=== PATIENT | female | born 1985 | race Caucasian/White ===

== ENCOUNTER 2020-10-13 10:17 | Day surgery (SDC) | payer OTHER ==
[2012-01-26 10:34] VITALS: BP 111/65
[2020-10-13] MEDS ORDERED: LIDOCAINE HCL 2% 100 MG/5 ML IJ ONE (10:18)
--- NOTE | 2020-10-13 16:07 | XRAY ---
10 seconds of fluoroscopy was used in surgery for a bilateral L4-L5, L5-S1 MBB.
[2020-10-13] MEDS ORDERED: Lactated Ringers 1,000 ML IV ONE (17:31)
== END 2020-10-13 13:58 | disposition home or self-care (01) ==
LOC: SDC-PAIN 10:17
PROVIDERS: ATTEND Psychiatry & Neurology Pain Medicine
DX: M47.816 Spondylosis without myelopathy or radiculopathy, lumbar region (principal); I10 Essential (primary) hypertension; Z79.899 Other long term (current) drug therapy
CPT/HCPCS: 64493; 64494; 72020; 77002; 84703

== ENCOUNTER 2020-12-15 11:44 | Day surgery (SDC) | payer OTHER ==
[2012-01-26 10:34] VITALS: BP 111/65
[2020-12-15] MEDS ORDERED: BUPIVACAINE 0.5% VIAL IJ ONE (11:45)
[2020-12-15] MEDS ORDERED: DIPRIVAN 200 MG/20 ML IV ONE (13:29)
[2020-12-15] MEDS ORDERED: Lactated Ringers 1,000 ML IV ONE (13:39)
--- NOTE | 2020-12-15 14:26 | XRAY ---
7 seconds of fluoroscopy was used in surgery for a bilateral L4-S1 MBB.
--- NOTE | 2020-12-15 14:29 | XRAY ---
Indication: Bilateral L4-S1 MBB. Intraoperative fluoroscopy provided for 7 seconds. Single digital spot image submitted for interpretation demonstrates posterior needle tips projecting over the expected left and right L4-S1 nerve roots. Correlate with intraoperative findings/report.
== END 2020-12-15 13:45 ==
LOC: SDC-PAIN 11:44
PROVIDERS: ATTEND Psychiatry & Neurology Pain Medicine
DX: M47.816 Spondylosis without myelopathy or radiculopathy, lumbar region (principal); Z79.899 Other long term (current) drug therapy
CPT/HCPCS: 64493; 64494; 72020; 77002; 84703; J2704